=== PATIENT | female | born 1960 | race Caucasian/White ===

== ENCOUNTER 2024-12-07 08:12 | Emergency (ER) | payer OTHER, SELFPAY ==
[2024-12-07 08:20] VITALS: BP 176/91
--- NOTE | 2024-12-07 08:36 | ED.GENMED ---
History of Present Illness
General
Chief Complaint: Chest Pain
Source: patient
Exam Limitations: none
Time Seen by Provider: 12/07/24 08:25
Nursing documentation reviewed up to this point in time: agreed with
History of Present Illness
History of Present Illness:
64 yr old female presents to the ED for evaluation of chest pain. Patient reports about several days she has been waking up with her chest feeling heavy. Today however she woke up and she was sweaty and reports her arms are sweaty as well. She
reports typically when she wakes up and her chest feels heavy when she gets up and starts to walk around her chest heaviness goes away. She has no cardiac history. She has no past medical history of high cholesterol or diabetes. She does not
smoke. There is cardiac disease on her mother side. She denies any lower extremity swelling. She denies any injury. She denies any recent URI coughing. She has no DVT PE risk factors no previous DVT PE in the past. No clotting disorder in
family or with patient.
Phy Exam
General Physical Exam
General Presentation: no apparent distress
General age: appears stated age
General Skin: warm and dry
General Habitus: normal
General Mental: alert
Cardiovascular Exam
Cardiovascular Exam: regular rate/rhythm, no murmur and normal peripheral pulses
Pulmonary Exam
Pulmonary Exam: lungs clear and no respiratory distress
Neurological Exam
Neurological Exam: alert and oriented x3
Musculoskeletal Exam
Musculoskeletal Exam: full ROM
Skin Exam
Skin Exam: normal color
Psychiatric Exam
Psychiatric Exam: normal mood/affect
Scores
Heart Score for Chest Pain Patients
STEMI patient?: Not applicable
Course
Orders/Labs/Results
Orders:
Orders
12/07/24 08:14
Electrocardiogram (*1) Urgent
Reason for Study: Chest Pain
EKG- Treatment ONCE
12/07/24 08:36
IV Insert/Care/Rem.- Treatment PRN
12/07/24 08:37
Cardiac Monitoring- Treatment ONCE
CR Chest - 2 Views Urgent
Comment:
Reason For Exam: cp
12/07/24 08:55
Complete Blood Count/With Diff Urgent
Comprehensive Metabolic Panel Urgent
Troponin I Urgent
12/07/24 11:46
Electrocardiogram (*1) Stat
Reason for Study: Other
Other Reason for Exam: chest pain
EKG- Treatment ONCE
12/07/24 11:47
Troponin I Urgent
Abnormal Lab Results
12/07/24
08:55
MPV 12.0 H fL
(7.4-10.4)
Chloride 109 H mmol/L
(98-107)
Glucose 105 H mg/dl
(70-99)
12/07/24 08:55
12/07/24 08:55
Vital Signs
Initial and Last Documented VS:
Initial Vital Signs
Temp Pulse Resp BP Pulse Ox
98.1 F 94 16 176/91 96
12/07/24 08:20 12/07/24 08:20 12/07/24 08:20 12/07/24 08:20 12/07/24 08:20
Last Documented Vital Signs
Temp Pulse Resp BP Pulse Ox
98.1 F 91 18 130/68 98
12/07/24 08:20 12/07/24 10:45 12/07/24 10:45 12/07/24 10:00 12/07/24 10:45
Engineering Laboratory Technician consulted with Physician
Engineering Laboratory Technician consulted with physician?: Yes
Name of Physician Consulted: jose antonio
MDM/Problems Addressed
Differential Diagnosis Includes:
Not limited to muscular pain, less likely ACS less likely PE
MDM/Problems Addressed:
patient with negative cardiac workup. 2 negative cardiac troponins unremarkable EKGs. She has had intermittent chest discomfort that she describes as pressure when she wakes up in the morning however today she had some diaphoresis with the chest
pressure. This is not associate with exertion in fact it seems to improve with exertion. She has no PE DVT risk factors and has no shortness of breath complaints. She is nontachycardic nontachypneic well-appearing in no acute distress
she has no cardiac history or cardiac risk factors however will place on chest pain hotline. Patient is no acute distress and has remained asymptomatic here in the ER.
*Radiology
Radiology exam reviewed: radiology read reviewed
*Pulse Oximetry
SaO2: 96
Oxygen Mode of Delivery: Room air
Patient hypoxic: no
*EKG
Interpreted by ED Provider?: Yes
Comparison EKG: no changes
Heart Rate: 87
Rate: normal
Rhythm: sinus
Ischemia: no ischemia
*Critical Care Note
Total Time (30-74mins, 75-104mins- exclusive of procedures): Not Applicable
ED Attending Note
-
Portions of this chart may have been created with voice recognition software.� Occasional wrong word or��sound alike� substitutions may have occurred due to the inherent limitations of voice recognition software.
Discharge Plan
Departure
Patient Disposition: Home (Routine Discharge)
Date of Disposition: 12/07/24
Time of Disposition: 13:41
Patient with high blood pressure during this ER visit?: Yes
Covid-19: Not Applicable
Discharge Problem:
Chest pain
Instructions: Chest Pain DCA Follow Up
Prescriptions:
No Action
ondansetron 4 mg tablet,disintegrating
4 mg PO Q8H PRN (Reason: nausea and vomiting) Qty: 7 0RF
Referrals:
Reymundo Hickman DO [Active, Cardiology]
Milagro Buchanan CRNP [Family Provider, General]
Activity Restrictions/Additional Instructions:
As discussed you are placed on the chest pain hotline which means you should receive a phone call from cardiology's office in the next several days .
if you do not please give the office a call.
No exertional activities until seen and evaluated by cardiology
Return if any worsening of symptoms.
Interventions
Interventions:
*Risk Screen - Suicide Last Done: 12/07/24 08:20
*General Assessment Last Done: 12/07/24 09:38
*Neglect/Abuse Screening Last Done: 12/07/24 08:20
*ED- Fall Risk Assessment Last Done: 12/07/24 09:38
*ED COVID-19 Vaccine History Last Done: 12/07/24 09:38
ED- Cardiac Assessment Last Done: 12/07/24 09:38
Discharge Date and Time
Print Language: ESTONIAN
[2024-12-07 09:02] LABS: Hematocrit 40.8 % (37.0-47.0); Hemoglobin 13.6 g/dL (12.0-16.0); Mean Corp Hgb Conc. 33.3 g/dL (33.0-37.0); Mean Corpuscular Volume 85.5 fL (81.0-99.0); Nucleated Red Blood Cells % 0 %; Platelet Count 175 10^3/uL (130-400); Red Cell Dist. Width 13.4 % (11.5-14.5)
[2024-12-07 09:16] LABS: ALT (SGPT) 17 U/L (0-35); AST (SGOT) 20 U/L (14-36); Albumin 4.2 g/dl (3.5-5.0); Alkaline Phosphatase 90 U/L (38-126); Blood Urea Nitrogen 13 mg/dl (7-17); Calcium 9.2 mg/dl (8.4-10.2); Carbon Dioxide 26 mmol/L (22-30); Chloride 109 mmol/L (98-107); Glucose 105 mg/dl (70-99); Potassium 3.6 mmol/L (3.5-5.1); Sodium 142 mmol/L (135-145); Total Protein 7.1 g/dl (6.3-8.2); eGFR > 60.00
[2024-12-07 09:19] VITALS: BP 131/80
[2024-12-07 09:27] LABS: Troponin I < 0.012 ng/ml
[2024-12-07 10:00] VITALS: BP 130/68
[2024-12-07 12:45] LABS: Troponin I < 0.012 ng/ml
== END 2024-12-07 13:50 | disposition home or self-care (01) ==
LOC: EMR 08:12
PROVIDERS: Nurse Practitioner; EMERGENCY PHYSICIAN Emergency Medicine; FAMILY PHYSICIAN Nurse Practitioner
DX: R07.9 Chest pain, unspecified (principal); R03.0 Elevated blood-pressure reading, without diagnosis of hypertension; Z82.49 Family history of ischemic heart disease and other diseases of the circulatory system
CPT/HCPCS: 99284; 71046; 80053; 84484; 85025; 93005

== ENCOUNTER → 2025-01-25 12:55 | Outpatient (REF) | payer OTHER, SELFPAY | LOC: RCS 12:55 | PROVIDERS: ATTENDING PHYSICIAN Internal Medicine Cardiovascular Disease; FAMILY PHYSICIAN Nurse Practitioner | DX: R07.89 Other chest pain (principal) | CPT/HCPCS: 93017; 93350 ==